=== PATIENT | female | born 1980 | race Caucasian/White ===

== ENCOUNTER 2017-04-08 23:34 | Emergency (ER) | payer OTHER, MEDICAID ==
[~2017-04-08] VITALS: Ht 147.3 cm; Wt 49.0 kg
[~2017-04-08 23:34] MED LIST: BIRTH CONTROL; DOCU-19 PO
[2017-04-08 23:40] VITALS: BP_SYST 127
[2017-04-09] MEDS: MAGNESIUM CITRATE 300 ML ORAL SOLUTION PO ONE (00:11)
[2017-04-09 00:21] VITALS: BP_SYST 117
== END 2017-04-09 00:21 | disposition home or self-care (01) ==
LOC: SED 23:34
DX: K59.00 Constipation, unspecified (principal)
CPT/HCPCS: 99282

== ENCOUNTER 2020-11-09 16:48 | Emergency (ER) | payer BC, MEDICAID ==
[~2020-11-09] VITALS: Ht 147.3 cm; Wt 48.1 kg
[2020-11-09 17:02] VITALS: BP_SYST 93
[2020-11-09 17:30] LABS: BILIRUBIN,URINE NEGATIVE (NEGATIVE); CLARITY/URINE CLEAR (CLEAR); COLOR,URINE YELLOW (YELLOW); GLUCOSE,URINE NEGATIVE (NEGATIVE); KETONES,URINE 3+ (NEGATIVE); LEUKOCYTE ESTERASE ,URINE 1+ (NEGATIVE); NITRITE, URINE NEGATIVE (NEGATIVE); PROTEIN URINE NEGATIVE (NEGATIVE); UROBILINOGEN,URINE 0.2 (0.2-1.0)
[2020-11-09 17:34] LABS: BASOPHILS # (AUTO) 0.1 K/uL (0.0-0.2); BASOPHILS % (AUTO) 0.3 % (0.0-2.0); EOSINOPHILS # (AUTO) 0.1 K/uL (0.0-0.4); EOSINOPHILS % (AUTO) 0.4 % (0.0-4.0); HEMATOCRIT 40.1 % (36-48); HEMOGLOBIN 13.8 g/dL (12.0-16.0); LYMPHOCYTES # (AUTO) 1.4 K/uL (1.0-5.5); LYMPHOCYTES % (AUTO) 8.5 % (20.5-51.5); MEAN CORPUSCULAR HEMOGLOBIN 30 pg (27-31); MEAN CORPUSCULAR HGB CONC 34 % (32-36); MEAN CORPUSCULAR VOLUME 87 fL (79.0-98.0); MONOCYTES # (AUTO) 1.2 K/uL (0.0-1.0); MONOCYTES % (AUTO) 7.7 % (1.7-9.3); NEUTROPHILS # (AUTO) 13.4 K/uL (1.8-7.7); NEUTROPHILS % (AUTO) 83.1 % (40.0-70.0); PLATELET COUNT (AUTO) 355 K/uL (130-430); RED BLOOD CELL COUNT(AUTO) 4.59 MIL/uL (4.2-6.2); RED CELL DISTRIBUTION WIDTH 14.3 % (9.0-15.0); WHITE BLOOD COUNT (AUTO) 16.1 K/uL (4.8-10.8)
[2020-11-09 17:47] LABS: CALCIUM 9.1 mg/dL (8.4-11.0); CREATININE 0.79 mg/dL (0.55-1.30); POTASSIUM 3.8 mmol/L (3.5-5.1)
[2020-11-09 17:48] LABS: BLOOD, URINE TRACE (NEGATIVE)
[2020-11-09 17:49] LABS: INR 1.1 (0.8-1.2)
[2020-11-09 17:49] LABS: BACTERIA,URINE FEW /HPF (None Seen); MUCUS,URINE None Seen /LPF (None Seen); RBC,URINE 0-3 /HPF (0-3)
[2020-11-09 17:51] LABS: ALBUMIN 3.2 g/dL (3.4-4.8); TOTAL BILIRUBIN 0.5 mg/dL (0.0-1.0)
[2020-11-09] MEDS ORDERED: HYDR-3919 PO (18:35)
[2020-11-09] MEDS ORDERED: IBUP-1969 PO (18:35)
[2020-11-09 18:49] VITALS: BP_SYST 110
== END 2020-11-09 18:49 | disposition home or self-care (01) ==
LOC: SED 16:48
DX: R10.11 Right upper quadrant pain (principal); Z79.899 Other long term (current) drug therapy
CPT/HCPCS: 36415; 76376; 80053; 81000-TC; 81025; 82150-TC; 83605; 83690-TC; 84703; 85025; 85610-TC; 85730-TC; 87086; 99284